=== PATIENT | male | born 1960 | race Caucasian/White ===

== ENCOUNTER 2020-09-20 11:22 | Outpatient (CLI) | payer BC ==
[2020-09-20 13:11] LABS: Anion Gap 16 mmol/L (10-20); BUN (Urea Nitrogen) 12 mg/dL (8.4-25.7); Calc. Creatinine Clearance 0 mL/min (70-130); Calcium 9.5 mg/dL (7.8-10.44); Carbon Dioxide 26 mmol/L (23-31); Chloride 100 mmol/L (98-107); Glucose 100 mg/dL (80-115); Potassium 4.5 mmol/L (3.5-5.1); Sodium 137 mmol/L (136-145)
[2020-09-20 21:48] LABS: SARS-CoV-2 PCR by NAA Not Detected (NotDetected)
== END 2020-09-20 11:23 | disposition home or self-care (01) ==
LOC: CSHLAB 11:22
PROVIDERS: ATTEND Specialist
DX: Z01.818 Encounter for other preprocedural examination (principal); Z20.822 Contact with and (suspected) exposure to COVID-19; I48.0 Paroxysmal atrial fibrillation; R94.31 Abnormal electrocardiogram [ECG] [EKG]
CPT/HCPCS: 80048; 87635; 93005; 93010; U0003; U0005

== ENCOUNTER 2020-09-23 06:15 | Day surgery (SDC) | payer BC ==
[2020-09-23 06:38] VITALS: BMI 26.6
== END 2020-09-23 06:57 | disposition home or self-care (01) ==
LOC: CSHSDC 06:15
PROVIDERS: ATTEND Specialist
DX: I48.0 Paroxysmal atrial fibrillation (principal); Z53.8 Procedure and treatment not carried out for other reasons; I25.10 Atherosclerotic heart disease of native coronary artery without angina pectoris; E78.5 Hyperlipidemia, unspecified; I10 Essential (primary) hypertension; Z95.5 Presence of coronary angioplasty implant and graft; Z79.899 Other long term (current) drug therapy; Z79.82 Long term (current) use of aspirin
CPT/HCPCS: 93005; 93010